=== PATIENT | male | born 1940 | race Caucasian/White ===

== ENCOUNTER 2015-12-08 09:00 | Outpatient (RCR) | payer MEDICARE, OTHER ==
[2015-11-25 13:30] VITALS: BP 95/72; PULSE 79; TEMP 97.4
[2015-11-25 14:45] LABS: ADJUSTED CALCIUM 8.7 mg/dL (8.4-10.2); ALBUMIN 4.2 gm/dL (3.5-5.0); BILIRUBIN,TOTAL 0.5 mg/dL (0.0-1.0); CALCIUM 8.9 mg/dL (8.4-10.2); CREATININE, serum 1.45 mg/dL (0.66-1.25); POTASSIUM 4.9 mmol/L (3.4-5.0); TOTAL PROTEIN 7.4 gm/dL (6.4-8.2)
[2015-11-26 10:08] VITALS: BP 115/73; PULSE 92; TEMP 97.3
[2015-11-27 09:13] VITALS: BP 103/69; PULSE 86; TEMP 97.8
[2015-11-27 15:14] VITALS: BP 96/60; PULSE 108; TEMP 96
[2015-11-28 09:36] VITALS: BP 97/75; PULSE 74; TEMP 97.4
[2015-12-04 13:33] VITALS: BP 120/73; PULSE 93; TEMP 97.3
[~2015-12-08] VITALS: Ht 167.6 cm; Wt 69.9 kg
[~2015-12-08 09:00] MED LIST: ADVAIR 250/28 DISKU1 IH; ALDACTONE 25MG25 M1 PO; ALLOPURINOL300 MG PO; AMBIEN 10MG10 MG PO; ASCRIPTIN; ASPI325T6 PO; ASPIRIN 32325 MG/TAB PO; ASPIRIN 81M81 MG/TA2 PO; ATIVAN 1MG T1 MG/TAB PO; BROVANA15 MCG/2 M IH; BUMEX 1MG TA1 MG/TA1 PO; BUMEX PO; BUMEX2 MG PO; BYSTOLIC2.5 MG PO; CALCIUM CARB W/1 TA1 PO; CALCIUM CITRATE1 TA4 PO; CALCIUM1 CAP PO; CELEXA 20MG20 MG/TA1 PO; CELEXA 20MG20 MG/TAB PO; COD LIVER OIL 11 SGL PO; COLACE 100100 MG/CAP PO; CORDARONE200 MG/TAB PO; COREG6.25 MG PO; COUMADIN 2MG2 MG/TAB PO; COUMADIN 3MG3 MG/TAB PO; COUMADIN4 MG PO; COZAAR 50MG50 MG/TAB PO; DIGITEK0.25 MG PO; DOXAZOSIN4 MG PO; EFFER-K10 MEQ PO; FLONASE NASAL S16 GM NS; FUROSEMIDE80 MG PO; GLUCOPHAGE500 MG/TAB PO; IMDUR 30MG30 MG/TAB PO; IPRATROPIUM BROM3 M1 IH; IRON325 M2 PO; K-DUR 10 MEQ T10 MEQ PO; K-NORM10 MEQ PO; KLOR-CON 1010 MEQ PO; KLOR-CON20 MEQ PO; LANOXIN 0.25M0.25 MG PO; LASIX 20MG TABL20 MG PO; LASIX 40MG TABL40 MG PO; LOPRESSOR 225 MG/TAB PO; METFORMIN HCL500 M1 PO; METFORMIN500 MG PO; MIRALAX PA17 GM/Dose PO; MONOKET10 MG PO; MULTAQ400 MG PO; NATURAL E400 IU PO; NATURAL POTASS595 MG PO; NITRO-DUR0.2 MG/PAT TD; NITROQUICK0.4 MG SL; NITROSTAT0.4 MG/TAB SL; PERFOROMIS20 MCG/2 M IH; PLAVIX 75MG TAB75 MG PO; POTASSIUM99 MG PO; PROTONIX 40MG T40 MG PO; PULMICORT0.5 MG/2 M IH; ROXANOL 20MG20 MG/ML PO; RT SPIRIVA18 MCG IH; SINGULAIR 110 MG/TAB PO; SINGULAIR10 MG PO; SPIRIVA18 MCG IH; TOPROL XL100 MG PO; TRIAMTERENE AND1 TA1 PO; ULORIC40 MG PO; UROCIT-K 1010 MEQ; VITAMIN ABC PLU PO; VITAMIN C500 MG PO; VITAMIN E-400200 IU PO; WARFARIN2 MG PO; XANAX .25M0.25 MG/TA PO; XANAX 0.5MG0.5 MG PO; ZESTRIL 5MG5 MG PO; ZESTRIL2.5 MG PO; ZOLPIDEM TART10 MG PO; ZYLOPRIM 300MG300 MG PO; ZYRTEC 10MG10 MG PO; [UNRECOGNIZED DRUG - CODE] PO; [UNRECOGNIZED DRUG - CODE] PO
[2015-12-13] MEDS ORDERED: AMOXICILLIN/CLA1 TA1 PO (14:33)
[2015-12-13] MEDS ORDERED: LANOX0.0625 PO (15:01)
[2015-12-13] MEDS ORDERED: LASIX 40MG TABL40 MG PO (15:07)
[2015-12-13] MEDS ORDERED: PRAVACHOL 20MG20 MG PO (15:10)
== END 2016-02-23 | disposition still patient (30) ==
LOC: EUO
PROVIDERS: Family Medicine
DX: I48.91 Unspecified atrial fibrillation (principal); I50.9 Heart failure, unspecified; Z45.2 Encounter for adjustment and management of vascular access device
CPT/HCPCS: C1751; J1644; J1940